=== PATIENT | male | born 1960 | race Caucasian/White ===

== ENCOUNTER 2020-01-17 05:05 | Emergency (ER) | payer OTHER ==
[~2020-01-17] VITALS: Ht 188 cm; Wt 98.9 kg
[2020-01-17] MEDS ORDERED: PRED20 PO (06:41)
[2020-01-17] MEDS ORDERED: FAMO20 PO (06:41)
[2020-01-17] MEDS ORDERED: BENADRYL25 M1 PO (06:41)
== END 2020-01-17 07:00 | disposition home or self-care (01) ==
LOC: ER 05:05
DX: L50.9 Urticaria, unspecified (principal); Z79.52 Long term (current) use of systemic steroids; Z79.899 Other long term (current) drug therapy
CPT/HCPCS: 99283; J7512; Q0163